=== PATIENT | male | born 1970 | race Caucasian/White ===

== ENCOUNTER 2019-06-20 22:33 | Emergency (ER) | payer SELFPAY, MEDICAID ==
[~2019-06-20] VITALS: Ht 170.2 cm; Wt 65.8 kg
[~2019-06-20 22:33] MED LIST: UNOBMED
--- NOTE | 2019-06-20 22:40 | NUR ---
ED Nurse Note: Pt brought in by [employer] for medical clearance, pt has chronic wounds on bilat feet, mostly from walking bare foot, pt states has hx of staph infection, c/o pain at 5/10, no cp, no sob, also c/o alcohol withdrawls, pt is awake and alert, calm and cooperative, bilat feet placed in basin for cleaning.
[2019-06-20] MEDS ORDERED: Bacitracin Oint UD TOPIC ONE (23:00)
[2019-06-20] MEDS ORDERED: Augmentin 875mg Tab ORAL ONE (23:00)
[2019-06-20] MEDS ORDERED: LIBRIUM10 MG ORAL (23:00)
[2019-06-20] MEDS ORDERED: LORazepam 1mg tab ORAL ONE (23:00)
[2019-06-20] MEDS ORDERED: AUGMENTIN 875-1 EAC1 ORAL (23:00)
[2019-06-20] MEDS ORDERED: BACITRACIN15 GM TOPIC (23:00)
[2019-06-20 23:10] VITALS: BP 135/93
--- NOTE | 2019-06-20 23:10 | NUR ---
ER DISCHARGE NOTE: Patient is cleared to be discharged per ERMD, pt is aox4, on room air, with stable vital signs. pt was given dc and prescription instructions to [employer] officer for pt, pt id band removed without complications. pt is able to ambulate with steady gait. pt took all belongings.
--- NOTE | 2019-06-20 23:39 | Emergency Room Report ---
History of Present Illness General Chief Complaint: Medical Clearance Source: Patient Present Illness HPI 48-year-old male presents ED for evaluation. Patient is in police custody. Is here for clearance. States he has a rash possible staph infection on his feet. Has been there for unknown period of time. States there is pain. Burning, 6 out of 10, nonradiating. Also states he may be undergoing alcohol withdrawal. Last drink was yesterday. Feels shaky. Denies nausea or vomiting. Denies fevers or chills. Denies abdominal pain. Denies cough or congestion. No other aggravating relieving factors. Denies any other associated symptoms Allergies: Coded Allergies: No Known Allergies (Verified , 05/29/08) COVID-19 Screening Contact w/high risk pt: No Recent Travel to affected area: No Experienced COVID-19 symptoms?: No COVID-19 Testing performed [employer] INFORMATION CLERK: No Patient History Past Medical History: psych hx Past Surgical History: none Pertinent Family History: none Social History: Reports: alcohol use; Denies: smoking, drug use Immunizations: UTD Reviewed Nursing Documentation: PMH: Agreed; PSxH: Agreed Nursing Documentation-PMH Past Medical History: No History, Except For History Of Psychiatric Problem: Yes - schizophrenia Hx Seizures: Yes Review of Systems All Other Systems: negative except mentioned in HPI Physical Exam Vital Signs Date Time Temp Pulse Resp B/P (MAP) Pulse Ox O2 Delivery O2 Flow Rate FiO2 06/20/19 22:35 98.4 99 135/93 (107) 96 Room Air Sp02 EP Interpretation: reviewed, normal General Appearance: no apparent distress, alert, GCS 15, non-toxic Head: normocephalic, atraumatic Eyes: bilateral eye normal inspection, bilateral eye PERRL ENT: hearing grossly normal, normal pharynx, no angioedema, normal voice Neck: full range of motion, supple/symm/no masses Respiratory: chest non-tender, lungs clear, normal breath sounds, speaking full sentences Cardiovascular #1: regular rate, rhythm, no edema Cardiovascular #2: 2+ carotid (R), 2+ carotid (L), 2+ radial (R), 2+ radial (L) , 2+ dorsalis pedis (R), 2+ dorsalis pedis (L) Gastrointestinal: normal bowel sounds, non tender, soft, non-distended, no guarding, no rebound Rectal: deferred Genitourinary: normal inspection, no CVA tenderness Musculoskeletal: back normal, normal range of motion, gait/station normal, non- tender Neurologic: alert, motor strength/tone normal, oriented x3, sensory intact, responsive, speech normal Psychiatric: judgement/insight normal, memory normal, mood/affect normal, no suicidal/homicidal ideation Reflexes: 3+ bicep (R), 3+ bicep (L), 3+ tricep (R), 3+ tricep (L), 3+ knee (R) , 3+ knee (L) Skin: rash - papular rash to bilateral feet. nonerythematous base Lymphatic: no adenopathy Medical Decision Making Diagnostic Impression: Primary Impression: Rash Additional Impressions: Medical clearance for incarceration Alcohol withdrawal Qualified Codes: F10.239 - Alcohol dependence with withdrawal, unspecified ER Course Hospital Course 48 yo M presents with rash to feet, states he is in withdrawal. Differential diagnoses include: Cellulitis, dermatitis, insect bite, abscess Clinical course Patient placed in chair. After initial history, physical exam reveals a middle- age male in no acute distress. There is a red papular rash noted on both feet soles. Nonerythematous base. Patient appears anxious. No SI or HI. No hallucinations. Vitals stable. Feet are soaked and cleaned. Bacitracin dressings applied. Given Augmentin here. Given Ativan. Safe for [facility] clearance. I will provide outpatient referrals Diagnosis - rash, medical clearance for incareration, alcohol withdrawal stable and discharged to police custody with Rx Augmetnin, Librium, bacitracin. Instructed to followup with PMD. Instructed return to ED if symptoms recur or worsen Last Vital Signs Date Time Temp Pulse Resp B/P (MAP) Pulse Ox O2 Delivery O2 Flow Rate FiO2 06/20/19 23:15 98.4 06/20/19 22:35 99 135/93 (107) 96 Room Air Status: improved Disposition: LAW ENFORCEMENT IN CUST Condition: Stable Scripts Bacitracin (Bacitracin) 28.4 Gm Oint...g. 1 APPLIC TOPIC THREE TIMES A DAY, #28.4 GM Prov: Fady Amanda MD 06/20/19 Chlordiazepoxide Hcl* (LIBRIUM*) 10 Mg Capsule 10 MG ORAL THREE TIMES A DAY, #15 CAP 0 Refills Prov: Fady Amanda MD 06/20/19 Amoxicillin/Potassium Clav 875-125* (AUGMENTIN 875-125 TABLET*) 1 Each Tablet 1 TAB ORAL TWICE A DAY, #14 TAB Prov: Fady Amanda MD 06/20/19 Referrals: NOT CHOSEN IPA/,REFERRING (PCP) Zain Sifuentes [facility]. [facility] Departure Forms: [facility] Clearance Fady Amanda MD June 20, 2019 23:38
== END 2019-06-20 23:10 ==
LOC: EMR 22:51
DX: R21 Rash and other nonspecific skin eruption (principal); F10.239 Alcohol dependence with withdrawal, unspecified; F20.9 Schizophrenia, unspecified; G40.909 Epilepsy, unspecified, not intractable, without status epilepticus
CPT/HCPCS: 99282

== ENCOUNTER 2019-11-02 08:00 | Emergency (ER) | payer MEDICAID, SELFPAY ==
[~2019-11-02] VITALS: Ht 170.2 cm; Wt 72.6 kg
[~2019-11-02 08:00] MED LIST changes: +AUGMENTIN 875-1 EAC1 ORAL; +BACITRACIN15 GM TOPIC; +Bactrim-DS 1 tab ORAL SCH; +LIBRIUM10 MG ORAL
[2019-11-02 08:10] VITALS: BP 140/67
--- NOTE | 2019-11-02 08:10 | NUR ---
ED Nurse Note: Patient walked into ED c/o open sore on right lower buttock that he states is an "open boil".
[2019-11-02] MEDS ORDERED: Bactrim-DS 1 tab ORAL ONE (08:15)
--- NOTE | 2019-11-02 08:16 | Emergency Room Report ---
History of Present Illness General Chief Complaint: Skin Rash/Abscess Source: Patient Present Illness HPI Disclaimer: Please note that this report is being documented using DRAGON technology. This can lead to erroneous entry secondary to incorrect interpretation by the dictating instrument. HPI: 49-year-old male presents for evaluation of skin lesions. Patient states he developed "boils" over his left wrist and right buttock for many months. He opened them using a razor. Reports redness, swelling but no purulent drainage. Denies fever or chills. Tender to touch. Denies nausea or vomiting. He also states he twisted his right ankle running out of the store 2 weeks ago. Denies direct trauma to the ankle or foot. Ambulating at his baseline. Denies recent cough, cold fever or chills. Patient is homeless. PMH: Reviewed PSH: Reviewed Allergies: Reviewed Social Hx: Reviewed Allergies: Coded Allergies: No Known Allergies (Verified , 05/29/08) COVID-19 Screening Contact w/high risk pt: No Recent Travel to affected area: No Experienced COVID-19 symptoms?: No COVID-19 Testing performed PATIENT CARE ASSISTANT: No Nursing Documentation-PMH Past Medical History: No History, Except For Hx Seizures: Yes Review of Systems All Other Systems: negative except mentioned in HPI Physical Exam Vital Signs Date Time Temp Pulse Resp B/P (MAP) Pulse Ox O2 Delivery O2 Flow Rate FiO2 11/02/19 08:03 98.1 98 17 140/67 (91) 98 General: Awake and alert, no acute distress HEENT: NC/AT. EOMI. Resp: Normal work of breathing Skin: There is a 2 cm wide ulcerative lesion over the left wrist, radial aspect, with surrounding erythema and mild edema. No purulent drainage. Ulcer is superficial. Similar appearing ulcer over the right buttock above the gluteal fold. Tender to palpation, erythematous but again no purulent drainage. MSK: Normal tone and bulk. Moving all extremities. No obvious deformity. No tenderness to palpation over the posterior aspect of the medial or lateral malleolus or in the midfoot region over the right foot and ankle. Full range of motion with dorsiflexion passive flexion, inversion and eversion. Neuro: Awake and alert. Mentating appropriately Medical Decision Making Homeless Attestation Patient has been medically screened and is stable for outpatient follow up ER Course Is a 49-year-old male presenting for evaluation of skin lesions and ankle pain. Differential includes is not limited to ankle fracture, foot fracture, strain, sprain, cellulitis, dermatitis, abscess among others. Regarding the patient's ankle, he is negative per [place] ankle rules and and ambulatory without difficulty. Little suspicion for fraction. Will place in an Oni bandage for possible strain/sprain. Regarding his skin lesions it appears he had superficial ulcerations and will require antibiotics though no evidence of deep space infection that would require immediate intervention at this time. Will have his wounds cleaned, bacitracin applied, start him on Bactrim. Will provide medications for him to take home from the ED. Referred to nearby shelters. Stable for outpatient follow-up. Last Vital Signs Date Time Temp Pulse Resp B/P (MAP) Pulse Ox O2 Delivery O2 Flow Rate FiO2 11/02/19 08:03 98.1 98 17 140/67 (91) 98 Disposition: HOME, SELF-CARE Condition: Stable Scripts Trimethoprim/Sulfamethoxazole 160/800* (BACTRIM DS TABLET*) 1 Each Tablet 1 TAB ORAL Q12H for 10 Days, #20 TAB 0 Refills Prov: Philip Wolf MD 11/02/19 Bacitracin (Bacitracin) 28.4 Gm Oint...g. 1 APPLIC TOPIC THREE TIMES A DAY, #28.4 GM Prov: Philip Wolf MD 11/02/19 Philip Wolf MD Nov 02, 2019 08:16
[2019-11-02] MEDS ORDERED: BACITRACIN15 GM TOPIC (08:21)
[2019-11-02] MEDS ORDERED: BACTRIM DS TAB1 EAC1 ORAL (08:21)
[2019-11-02] MEDS: Bacitracin Oint 15gm Tube TOPIC SCH ×2 (08:29→13:29)
--- NOTE | 2019-11-02 08:44 | NUR ---
ED Nurse Note: Wound dressed with Bacitracin and gauze, patient given tablet of antibiotic.
[2019-11-02 09:15] VITALS: BP 138/62
--- NOTE | 2019-11-02 09:15 | NUR ---
ED Nurse Note: Pt cleared by health care Provider for discharge. DC instructions/prescription was given and explained to pt and verbalized understanding of teachings. Hospital pharmacy filled Rx for oral antibiotic for patient prior to leaving, Bacitracin ordered by ERMD given to patient, along with extra gauze and dressing supplies. Multiple sandwiches and juice given to patient. ID band removed. Pt is AAO x4, ambulatory and left with all personal belongings.
== END 2019-11-02 13:20 | disposition home or self-care (01) ==
LOC: EMR 08:20
DX: L98.499 Non-pressure chronic ulcer of skin of other sites with unspecified severity (principal); L98.419 Non-pressure chronic ulcer of buttock with unspecified severity; G40.909 Epilepsy, unspecified, not intractable, without status epilepticus; M25.571 Pain in right ankle and joints of right foot
CPT/HCPCS: 99282